=== PATIENT | female | born 1995 | race Hispanic/Latino ===

== ENCOUNTER 2016-12-24 21:45 | Inpatient (IN) | payer OTHER ==
[~2016-12-24] VITALS: Ht 162.6 cm; Wt 94.0 kg
[2016-12-24] MEDS: LR 1,000 ML IV SCH (03:07)
[2016-12-24] MEDS ORDERED: PRENTAB31 PO (22:11)
[2016-12-24] MEDS ORDERED: RANI1TAB38 PO (22:11)
[2016-12-24 22:12] VITALS: BP 109/62
[2016-12-24 23:58] LABS: MEAN CORPUSCULAR HEMOGLOBIN 25.6 pg (27.0-33.0); MEAN CORPUSCULAR HGB CONC 31.9 g/dl (32.0-36.5); MEAN CORPUSCULAR VOLUME 80.1 fl (80.0-96.0); RED CELL DISTRIBUTION WIDTH 14.2 % (11.5-14.5); WHITE BLOOD COUNT 9.5 K/mm3 (4.0-10.0)
[2016-12-25] VITALS (25 sets, daily range): BP systolic 98–120; BP diastolic 49–69
[2016-12-25] MEDS: LR 1,000 ML IV SCH (09:57)
[2016-12-25] MEDS ORDERED: OXYTOCIN 30 UNITS IN 0.9% NaCl 500ML IV BAG (J2590) As Ordered ONE (19:55)
[2016-12-25] MEDS: OXYTOCIN DRIP 30 UNITS in APPROPRIATE DILUENT 1 EA IV SCH (20:13)
[2016-12-25] MEDS ORDERED: PROMETHAZINE INJ 25 MG/ML VIAL (J2550) IM ONE (23:15)
[2016-12-25] MEDS ORDERED: BUTORPHANOL 2 MG/ML INJ (J0595) IV ONE (23:15)
[2016-12-25] MEDS ORDERED: PROMETHAZINE INJ 25 MG/ML VIAL (J2550) As Ordered ONE (23:42)
[2016-12-25] MEDS ORDERED: PENICILLIN G POTASSIUM IV 5 MU in D5W MINI-BAG PLUS 100 ML IV STA (23:52)
[2016-12-26] VITALS (36 sets, daily range): BP systolic 84–127; BP diastolic 49–79
[2016-12-26] MEDS ORDERED: PROMETHAZINE INJ 25 MG/ML VIAL (J2550) IV ONE
[2016-12-26] MEDS: PENICILLIN G POTASSIUM IV 2.5 MU in D5W 100 ML IV SCH ×3 (03:53→12:39)
[2016-12-26] MEDS ORDERED: miSOPROStol 50 MCG 1/2 TAB (S0191) PO SCH (05:00)
[2016-12-26] MEDS: PRENATAL VITAMIN TAB PO SCH (09:00)
[2016-12-26] MEDS ORDERED: FENTANYL 2MCG/ML ROPIVACAINE 0.2% NACL 250 ML CADD As Ordered ONE (09:18)
[2016-12-26] MEDS ORDERED: OXYTOCIN 30 UNITS IN 0.9% NaCl 500ML IV BAG (J2590) As Ordered ONE (09:19)
[2016-12-26] MEDS: LR 1,000 ML IV SCH (09:23)
--- NOTE | 2016-12-26 09:23 | IPNPDOC ---
Text Note Date of Service The patient was seen on 12/26/16. NOTE Assumed care 0730, SBAR fromDr Irobunda ~36 hrs now at 1 cm dilation after confirmed SROM, on Ancef for >24 hrs ruptured. Was on pitocin all day yesterday and despite pit rest no change, transitioned to PO cytotec overnight. Pt now more uncomfortable and wants an epidural NST Cat 1, reg ctx's q 2 min Cx 2-3/90/-2/vtx well applied a/p: Doing well, finally progressing in labor. Epidural then will transition to pitocin per SOP Sessions VS,Will, I+O VS, Will, I+O Vital Signs Date Time Temp Pulse Resp B/P Pulse Ox O2 Delivery O2 Flow Rate FiO2 12/26/16 06:11 88 109/62 12/26/16 05:42 97.5 18 12/24/16 22:12 20 SESSIONS,ALYSSA Melton MD Dec 26, 2016 09:22
[2016-12-26] MEDS: OXYTOCIN DRIP 30 UNITS in APPROPRIATE DILUENT 1 EA IV SCH (10:25)
[2016-12-26] MEDS ORDERED: EPIDURAL COMMENT XX SCH (10:30)
[2016-12-26] MEDS ORDERED: ONDANSETRON 4MG/2ML VIAL (J2405) IV PRN (10:30)
[2016-12-26] MEDS ORDERED: diphenhydrAMINE INJ 50MG/ML VIAL (J1200) IV PRN (10:30)
[2016-12-26] MEDS ORDERED: NALOXONE INJ 0.4 MG/1 ML VIAL (J2310) IV PRN (10:30)
[2016-12-26] MEDS ORDERED: LACTATED RINGER'S 1000 ML IV PRN (10:30)
[2016-12-26] MEDS ORDERED: EPIDURAL/PCA KEYS XX PRN (10:30)
[2016-12-26] MEDS ORDERED: REFRIGERATOR IV KEYS XX PRN (10:30)
[2016-12-26] MEDS ORDERED: ePHEDrine SULFATE 25 MG/5 ML(5MG/ML) SYRINGE IV PRN (10:30)
[2016-12-26] MEDS ORDERED: FENTANYL/ROPIVACAINE/NACL CADD 250 ML EPIDURAL SCH (10:30)
[2016-12-26] MEDS ORDERED: OXYTOCIN DRIP 30 UNITS in APPROPRIATE DILUENT 1 EA IV SCH (13:43)
[2016-12-26] MEDS ORDERED: DIBUCAINE 1% OINTMENT 30GM TOP PRN (13:45)
[2016-12-26] MEDS ORDERED: RHOGAM 300 MCG (1500 IU) INJ (J2790) IM SCH (13:45)
[2016-12-26] MEDS ORDERED: DOCUSATE SODIUM 100 MG CAP PO PRN (13:45)
[2016-12-26] MEDS ORDERED: MEASLES,MUMPS,RUBELLA VACCINE INJ (MMR-II) (90707) SC SCH (13:45)
[2016-12-26] MEDS ORDERED: METHYLERGONOVINE MALEATE 0.2 MG TAB PO PRN (13:45)
[2016-12-26] MEDS ORDERED: IBUPROFEN 800 MG TAB PO PRN (13:45)
[2016-12-27 06:05] VITALS: BP 96/52
--- NOTE | 2016-12-27 06:59 | IPNPDOC ---
Text Note Date of Service The patient was seen on 12/27/16. NOTE prog note on 16FEB at 1312 States feeling well, no complaints. Bonding, nursing well, VB slowing, no signif pain, eating, ambulatory. VSS Ut at U-2, firm LE no CCE a/p: Doing well, d/c home likely tomorrow Sessions VS,Will, I+O VSWill I+O Vital Signs Date Time Temp Pulse Resp B/P Pulse Ox O2 Delivery O2 Flow Rate FiO2 12/27/16 06:05 97.3 85 19 96/52 12/26/16 10:16 98 I&O- Last 24 Hours up to 6 AM 12/27/16 06:00 Output Total 450 ml Balance -450 ml SESSIONS,ALYSSA Melton MD Dec 27, 2016 06:59
[2016-12-27] MEDS: PRENATAL VITAMIN TAB PO SCH (11:26)
[2016-12-27] MEDS: ACETAMINOPHEN 500 MG TAB PO PRN (13:57)
[2016-12-27 18:09] VITALS: BP 128/66
[2016-12-28] MEDS: ACETAMINOPHEN 500 MG TAB PO PRN (02:24)
[2016-12-28 06:26] VITALS: BP 110/58
[2016-12-28] MEDS: PRENATAL VITAMIN TAB PO SCH (09:25)
[2016-12-28] MEDS ORDERED: DIBU1OIN TOP (10:34)
[2016-12-28] MEDS ORDERED: ACET50TA PO (10:34)
[2016-12-28] MEDS ORDERED: COLA100C PO (10:34)
[2016-12-28] MEDS ORDERED: IBUP-1114 PO (10:34)
--- NOTE | 2016-12-30 09:03 | DSES ---
DATE OF ADMISSION: 12/24/2016 DATE OF DISCHARGE: 12/28/2016 This is a 21-year-old 1 now para 1 admitted with premature rupture of membranes and induction of labor at 39 and 2 weeks of gestation, spontaneous vaginal delivery female 7 pounds 4 ounces, 3278 grams. She had a small fourchette abrasion which was unremarkable. Today we discussed phlebitis, cystitis, mastitis, endometritis and cellulitis, diet, exercise, pain management, perineal, breast and wound care. She was given her medications and will decide on control in 6 weeks' time. Blood pressure today is 110/58, respirations 16, pulse 77, temperature 96.7. Her admitting hemoglobin 10.9, hematocrit 34.1 and platelets are 189. Presently she is normocephalic, atraumatic. Neck full range of motion. Pupils equal and reactive to light. Thyroid is normal. No jugular venous distention (JVD), bruits. Lungs are clear bilaterally to the bases. No wheezes or rhonchi. No costovertebral angle (CVA) tenderness. Distal pulses symmetric. Uterus is two below. Lochia is moderate. Perineum is intact. She has a bit of a bruise at the fourchette, unremarkable. No rashes, lesions or pruritus. No arthralgia, myalgia. No complaints of cough, wheezes, shortness of breath or dyspnea on exertion. No chest pain. Not bleeding. Neurologically complete. No complaints of incontinence, urgency or frequency. No nausea, vomiting, diarrhea or constipation. No diabetic issues. No family history. She does not smoke, drink, abuse drugs. She is . There is no domestic violence. In summary, we have a term gestation, delivered a live female infant. Discharged with medications. Followup in the office in 6 weeks' time.
== END 2016-12-28 12:51 | disposition home or self-care (01) | DRG 775 ==
LOC: M LDO 21:45 → M LDI 22:52 → M OBS 12-26 15:55
PROVIDERS: ADMIT Student in an Organized Health Care Education/Training Program; ATTEND Student in an Organized Health Care Education/Training Program
PROC: 3E033VJ Introduction of Other Hormone into Peripheral Vein, Percutaneous Approach (ICD-10-PCS; 2016-12-24)
PROC: 3E0P7GC Introduction of Other Therapeutic Substance into Female Reproductive, Via Natural or Artificial Opening (ICD-10-PCS; 2016-12-24)
PROC: 10E0XZZ Delivery of Products of Conception, External Approach (ICD-10-PCS; principal; 2016-12-26)
DX: O42.02 Full-term premature rupture of membranes, onset of labor within 24 hours of rupture (principal); Z37.0 Single live birth; Z3A.39 39 weeks gestation of pregnancy

== ENCOUNTER → 2017-09-29 | Outpatient (CLI) | payer OTHER ==
[~2017-09-29] MED LIST: ACET50TA PO; COLA100C5 PO; DIBU1OIN TOP; IBUP-1114 PO; PRENTAB31 PO; RANI1TAB38 PO
[2017-09-29 14:38] LABS: BASO % 0.4 % (0.0-1.0); EOS # 0.1 10^3/uL (0.0-0.50); EOS % 1.8 % (0.0-3.0); IMMATURE GRANULOCYTE % 0.3 % (0-0); LYMPH % 40.9 % (24.0-44.0); MEAN CORPUSCULAR HEMOGLOBIN 25.3 pg (27.0-33.0); MEAN CORPUSCULAR HGB CONC 30.4 g/dl (32.0-36.5); MEAN CORPUSCULAR VOLUME 83.1 fl (80.0-96.0); MONO # 0.4 10^3/uL (0.0-0.8); MONO % 4.8 % (0.0-5.0); NEUTROPHILS # 3.8 10^3/uL (1.8-7.7); NEUTROPHILS % 51.8 % (36.0-66.0); PLATELET COUNT, AUTOMATED 216 10^3/uL (150-450); RED CELL DISTRIBUTION WIDTH 13.8 % (11.5-14.5); WHITE BLOOD COUNT 7.3 10^3/uL (4.0-10.0)
[2017-09-29 15:02] LABS: ERYTHROCYTE SEDIMENTATION RATE 10 mm/hr (0-20)
[2017-10-01 01:08] LABS: Lyme Disease IgG/IgM Antibodie <0.91 ISR (0.00-0.90); Lyme Disease IgM Ab Quantitati <0.80 index (0.00-0.79)
== END ==
LOC: M LABDRAW1 11:21
PROVIDERS: ATTEND Orthopaedic Surgery
DX: M25.561 Pain in right knee (principal)